=== PATIENT | female | born 1990 | race Caucasian/White ===

== ENCOUNTER 2017-01-16 16:32 | Emergency (ER) | payer OTHER ==
[2017-01-16 16:40] VITALS: BP 160/70
[2017-01-16] MEDS ORDERED: KETOROLAC 60 MG/2 ML VIAL. IM ONE (17:15)
[2017-01-16] MEDS ORDERED: KETOROLAC 30 MG/ML VIAL. ONE (17:42)
--- NOTE | 2017-01-16 20:07 | ED.ADGEN ---
Past History Past Medical History: No Pertinent History Alcohol Use: Occasionally Drug Use: Marijuana Adult General HPI HPI Patient is a 27-year-old woman, with no significant past no history, who presents emergency Department with a complaint of right-sided neck and shoulder pain. Patient states she is evaluated by her primary care provider last week, that time she was told that she is expressing a muscle spasm in her neck and shoulder, and was prescribed cyclobenzaprine. She states that she has not been able to fill the prescription at this time and is waiting for at the pharmacy. She states that she is experiencing worsening pain in her right arm, to the point where she can barely lift the arm at all due to discomfort. She denies any weakness, or numbness, states that the pain begins in her right neck and shoots all the way down into her arm extending to the elbow and sometimes to the fingers. She denies any discrete injury. 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 She states that she was told by her doctor after x-rays were done last week that she had evidence of arthritis in her back, and is currently being scheduled for an MRI. She did take ibuprofen prior to coming to the ED without relief. Review of Systems Review of Systems Constitutional: Denies fever or chills [] Eyes: Denies change in visual acuity, redness, or eye pain [] HENT: Denies nasal congestion or sore throat [] Respiratory: Denies cough or shortness of breath [] Cardiovascular: No additional information not addressed in HPI [] GI: Denies abdominal pain, nausea, vomiting, bloody stools or diarrhea [] : Denies dysuria or hematuria [] Musculoskeletal: Neck upper back pain, radiating into the right shoulder and arm. Integument: Denies rash or skin lesions [] Neurologic: Denies headache, focal weakness or sensory changes [] Endocrine: Denies polyuria or polydipsia [] Current Medications Current Medications Current Medications Medications (Trade) Dose Ordered Sig/Jeremy Start Time Stop Time Status Last Admin Dose Admin Diazepam (Valium) 10 mg STK-MED ONCE 01/16/17 17:42 01/16/17 17:43 DC Ketorolac Tromethamine (Toradol) 30 mg STK-MED ONCE 01/16/17 17:42 01/16/17 17:43 DC Allergies Allergies Allergies Coded Allergies Type Severity Reaction Last Updated Verified No Known Drug Allergies 01/16/17 No Physical Exam Physical Exam Constitutional: Well developed, well nourished, no acute distress, non-toxic appearance. [] HENT: Normocephalic, atraumatic, bilateral external ears normal, oropharynx moist, no oral exudates, nose normal. [] Eyes: PERRLA, EOMI, conjunctiva normal, no discharge. [] Neck: Normal range of motion, no midline tenderness, step-offs or deformities, supple, no stridor. [] Patient with a positive Spurling sign. Cardiovascular:Heart rate regular rhythm, no murmur, S1, S2, rubs or gallops. [] Lungs & Thorax: Bilateral breath sounds clear to auscultation, no wheezing, rhonchi, rales. No chest or crepitus or tenderness. [] Abdomen: Bowel sounds normal, soft, no tenderness, no masses, no pulsatile masses. [] Skin: Warm, dry, no erythema, no rash. [] Back: No tenderness, no CVA tenderness. [] Extremities: Mild tenderness palpation in the trapezius on the right side,, no cyanosis, no clubbing, ROM intact, no edema. [] Patient with cardinal motions intact, full strength. Neurologic: Alert and oriented X 3, normal motor function, normal sensory function, no focal deficits noted. [] Psychologic: Affect normal, judgement normal, mood normal. [] Current Patient Data Vital Signs Vital Signs Date Time Temp Pulse Resp B/P (MAP) Pulse Ox O2 Delivery O2 Flow Rate FiO2 01/16/17 16:40 98.3 118 16 97 Room Air EKG EKG Not indicated. [] Radiology/Procedures Radiology/Procedures Not indicated. [] Course & Med Decision Making Course & Med Decision Making Pertinent Labs and Imaging studies reviewed. (See chart for details) Patient's examination is consistent with cervical radiculopathy. I did discuss this with the patient, as stated she is being scheduled for an MRI, and was told after x-ray performed last week that she has evidence of arthritis in her back. Discussed the causes of cervical radiculopathy the patient, and potential treatment. Patient received an injection of Toradol and Valium in the emergency department to assist with relaxation and pain control, she states she will follow-up with her doctor this week for the scheduling of her MRI, was also given contact information for Dr. Avila of neurosurgery to establish additional follow-up as needed. Patient states that the Flexeril is waiting for her at the pharmacy and that her spousal be able to pick it up on their way home. Patient given clear and detailed return instructions with which she voiced understanding and agreement. Discharged home in stable condition, to continue the medications as directed by her primary care provider, to follow-up as directed and to return to the ED for concerning symptoms as discussed. Final Impression Final Impression [] Problems: Dragon Disclaimer Dragon Disclaimer This electronic medical record was generated, in whole or in part, using a voice recognition dictation system. Departure: Impression: Primary Impression: Cervical radiculopathy Disposition: 01 HOME, SELF-CARE Condition: IMPROVED DANELLE NDIAYE DO Jan 16, 2017 20:07
== END 2017-01-16 18:00 | disposition home or self-care (01) ==
LOC: ER 16:32
DX: M54.12 Radiculopathy, cervical region (principal); M25.511 Pain in right shoulder; F12.10 Cannabis abuse, uncomplicated
CPT/HCPCS: 96372; 99284; J1885

== ENCOUNTER 2017-01-22 04:19 | Emergency (ER) | payer OTHER ==
--- NOTE | 2017-01-22 04:41 | PHYS DOC ---
Past History Past Medical History: No Pertinent History Alcohol Use: Occasionally Drug Use: Marijuana Adult General Chief Complaint Chief Complaint: CHEST PAIN HPI HPI Patient is a 27 year old F who presents with left sided chest pain that started approximately an hour ago while at work. Patient has no cardiac history. The only cardiac risk factor is smoking cigarettes and marijuana. Patient states she gets pain relief when she presses against her left chest. The pain is nonradiating. The pain is not exertional. Patient denies any shortness of breath. Patient denies any fevers. Patient denies abdominal pain or nausea/ vomiting/diarrhea. Patient has no other complaints. Pertinent exam findings: Heart was regular rate and rhythm without any murmurs Lungs are clear to auscultation bilaterally without crackles wheezes or rales ED course: Patient was seen and examined upon arrival to emergency room CBC, BMP, troponin , chest x-ray, EKG were ordered 0537: Was reexamined in which the chest pain got better, patient was updated on lab results and x-ray results. Explained to the patient that she is low risk from a cardiac standpoint and can be safely discharged home with follow-up with her PCP for further cardiac evaluation. Patient is comfortable going home. Pertinent results: HEART score: =1 PERC neg 0546: EKG shows normal sinus rhythm rate of 64 no STEMI Chest x-ray unremarkable Troponin negative MDM: After reviewing the chart, CC/HPI/PMH, physical exam, [lab results], [ radiological results], I do not believe the patient have an acute PR, PE, and his low suspicion for acute thoracic aortic dissection. Based on the patient's cardiac risk factors and lab results I believe the patient is low risk and can be discharged home for follow-up with her PCP for further cardiac evaluation. Patient is stable for discharge and patient is comfortable being discharged home. Additional verbal discharge instructions were provided to the patient and that if symptoms get worse or any new symptoms arise that are worrisome to the patient she is to return to the emergency room immediately Review of Systems Review of Systems GEN: Denies fevers, chills, sweats HEENT: Denies blurred vision, sore throat CV: chest pain RESP: Denies shortness of air, cough GI: Denies n/v/d NEURO: Denies confusion, dizziness MSK: Denies weakness, joint pain/swelling Allergies Allergies Allergies Coded Allergies Type Severity Reaction Last Updated Verified No Known Drug Allergies 01/16/17 No Physical Exam Physical Exam GEN.: No apparent distress. Alert and oriented. HEENT: Head is normocephalic, atraumatic NECK: Supple. LUNGS: CTAB. HEART: RRR, S1, S2 present. Peripheral pulses intact ABDOMEN: Soft, nontender. Positive bowel sounds. EXTREMITIES: Without any cyanosis. NEUROLOGIC: Normal speech, normal tone PSYCHIATRIC: Normal affect, normal mood. SKIN: No ulcerations EKG EKG EKG shows normal sinus rhythm rate of 64 no STEMI [] Radiology/Procedures Radiology/Procedures Two-view chest x-ray NAD[] Course & Med Decision Making Course & Med Decision Making Pertinent Labs and Imaging studies reviewed. (See chart for details) [] Dragon Disclaimer Dragon Disclaimer This chart was dictated in whole or in part using Voice Recognition software in a busy, high-work load, and often noisy Emergency Department environment. It may contain unintended and wholly unrecognized errors or omissions. Departure Departure: Impression: Primary Impression: Chest pain Disposition: 01 HOME, SELF-CARE Condition: STABLE Referrals: PANCHO MAJANO DO (PCP) Patient Instructions: Chest Contusion, [id number] Additional Instructions: Please follow up with her family doctor next one to 2 days and return symptoms increase Problem Qualifiers Primary Impression: Chest pain Chest pain type: unspecified Qualified Codes: R07.9 - Chest pain, unspecified VLADIMIR RIZZO DO Jan 22, 2017 04:41
[2017-01-22] MEDS ORDERED: KETOROLAC 30 MG/ML VIAL. IV ONE (05:00)
[2017-01-22 05:04] LABS: BASO # 0.1 x10^3/uL (0.0-0.2); BASO % 1 % (0-3); EOS # 0.3 x10^3/uL (0.0-0.7); EOS % 3 % (0-3); HEMATOCRIT 41.7 % (36.0-47.0); HEMOGLOBIN 13.5 g/dL (12.0-15.5); LYMPH # 3.2 x10^3/uL (1.0-4.8); LYMPH % 29 % (24-48); MEAN CORPUSCULAR HEMOGLOBIN 29 pg (25-35); MEAN CORPUSCULAR HGB CONC 32 g/dL (31-37); MEAN CORPUSCULAR VOLUME 89 fL (79-100); MONO # 0.5 x10^3/uL (0.0-1.1); MONO % 5 % (0-9); NEUT % 63 % (31-73); PLATELET COUNT 245 x10^3/uL (140-400); RED CELL DISTRIBUTION WIDTH 13.9 % (11.5-14.5); WHITE BLOOD COUNT 11.1 x10^3/uL (4.0-11.0)
[2017-01-22 05:06] LABS: CALCIUM 8.5 mg/dL (8.5-10.1); CREATININE 0.9 mg/dL (0.6-1.0); GFR 74.6; POTASSIUM 3.7 mmol/L (3.5-5.1)
[2017-01-22 05:28] VITALS: BP 115/60
--- NOTE | 2017-01-22 07:51 | RAD ---
Indication chest pain and shortness of air. Frontal and lateral views of the chest were obtained. No prior imaging is available. The heart, pulmonary vessels and mediastinum appear normal. The lungs are clear. IMPRESSION: Normal study
--- NOTE | 2017-01-22 19:05 | EKG ---
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
== END 2017-01-22 05:55 | disposition home or self-care (01) ==
LOC: ER 04:19
DX: R07.89 Other chest pain (principal); F12.10 Cannabis abuse, uncomplicated
CPT/HCPCS: 36415; 71020; 80048; 84484; 85027; 93005; 96374; 99285; J1885

== ENCOUNTER 2017-06-25 20:13 | Emergency (ER) | payer SELFPAY ==
[~2017-06-25] VITALS: Ht 154.9 cm; Wt 88.5 kg
[2017-06-25 20:38] VITALS: BP 147/99
[2017-06-25] MEDS ORDERED: 0.9 % SODIUM CHLORIDE 10 ML DISP.SYRIN. IV PRN (20:45)
--- NOTE | 2017-06-25 20:49 | PHYS DOC ---
Past History Past Medical History: Migraines Past Surgical History: No Surgical History Smoking: Cigarettes, Greater than 1 pack/day Alcohol Use: Occasionally Drug Use: Marijuana Adult General Chief Complaint Chief Complaint: HEADACHE HPI HPI She is a 27-year-old female with a history of migraines who presents with her typical migraine between her temples bilaterally behind her eyes with photophobia and nausea without vomiting began at 11 AM today. She typically takes migraine headaches called Excedrin Migraine with resolution of her symptoms. But this day her symptoms have not improved. She denies any new symptoms, change in symptoms or severity of symptoms. Patient has never been to her ear before for prior symptoms treatment. Patient denies any fevers, change in vision, chest pain, abdominal pain just nausea without vomiting. Patient denies any trauma, denies any travel outside the country. 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 Review of Systems Review of Systems Constitutional: Denies fever or chills [] Eyes: Denies change in visual acuity, redness, or eye pain [] HENT: Denies nasal congestion or sore throat [] Respiratory: Denies cough or shortness of breath [] Cardiovascular: No additional information not addressed in HPI [] GI: Denies abdominal pain, she does complain of nausea without vomiting : Denies dysuria or hematuria [] Musculoskeletal: Denies back pain or joint pain [] Integument: Denies rash or skin lesions [] Neurologic: She does complain of headache but no focal weakness or sensory changes Endocrine: Denies polyuria or polydipsia [] All other systems were reviewed and found to be within normal limits, except as documented in this note. Current Medications Current Medications Current Medications Medications (Trade) Dose Ordered Sig/Jeremy Start Time Stop Time Status Last Admin Dose Admin Dexamethasone Sodium Phosphate (Decadron) 10 mg 1X ONCE 06/25/17 21:00 06/25/17 21:01 Diphenhydramine HCl (Benadryl) 50 mg 1X ONCE 06/25/17 21:00 06/25/17 21:01 Ketorolac Tromethamine (Toradol) 30 mg 1X ONCE 06/25/17 21:00 06/25/17 21:01 Ondansetron HCl (Zofran) 4 mg 1X ONCE 06/25/17 21:00 06/25/17 21:01 Sodium Chloride (Normal Saline Flush) 10 ml QSHIFT PRN 06/25/17 20:45 Allergies Allergies Allergies Coded Allergies Type Severity Reaction Last Updated Verified No Known Drug Allergies 01/16/17 No Physical Exam Physical Exam Constitutional: Well developed, well nourished, he obviously uncomfortable crying but consolable able speak without issues. HENT: Normocephalic, atraumatic, bilateral external ears normal, oropharynx moist, no oral exudates, nose normal. [] Eyes: PERRLA, EOMI, conjunctiva normal, no discharge. [] Neck: Normal range of motion, no tenderness, supple, no stridor. [] Cardiovascular:Heart rate regular rhythm, no murmur [] Lungs & Thorax: Bilateral breath sounds clear to auscultation [] Abdomen: Bowel sounds normal, soft, no tenderness, no masses, no pulsatile masses. [] Skin: Warm, dry, no erythema, no rash. [ Neurologic: Alert and oriented X 3, normal motor function, normal sensory function, no focal deficits noted. [] Psychologic: Affect normal, judgement normal, mood normal. [] EKG EKG [] Radiology/Procedures Radiology/Procedures [] Course & Med Decision Making Course & Med Decision Making Pertinent Labs and Imaging studies reviewed. (See chart for details) []Patient percents with a migraine headache Sudden onset not worse of life. Nonfocal neurologic exam. Patient given IV fluids antiemetics and pain medications none narcotic nature with reevaluation. MDM headache reevaluation: time 9:29 The patient presented to the emergency part with headache. The patient is now resting comfortably and feels better, is awake, talkative, interactive, and in no acute distress. The patient appears well and is able to tolerate by mouth fluids and medications. Repeat evaluation is unremarkable without any specific neurologic findings. The patient is neurologically intact, has normal mental status. The history, exam, and any diagnostic testing completed in the ED (if any) and the patient's current condition do not suggest meningitis, stroke, sepsis, subarachnoid hemorrhage, intracranial bleed, encephalitis, temporal arteritis, or other significant pathology warranting further testing and continue treatment in the ED. At this point I do not believe admission or neurologic consultation or other specialist evaluation are needed at this point. The patient's vital signs have been stabilized. Patient's condition is stable and appropriate for discharge. The patient will pursue further up and evaluation with primary care and other designated resources or consulting physicians as indicated in the discharge instructions. Dragon Disclaimer Dragon Disclaimer This electronic medical record was generated, in whole or in part, using a voice recognition dictation system. Departure Departure: Impression: Primary Impression: Migraine Disposition: 01 HOME, SELF-CARE Condition: IMPROVED Referrals: PANCHO MAJANO DO (PCP) Patient Instructions: Migraine Headache Additional Instructions: discharge: I've spoken with the patient and/or caregivers. I've explained the patient's condition, diagnosis and treatment plan based on information available to me at this time. I've answered the patient's and/or caregivers questions and addressed any concerns. The patient and/or caregivers have a good understanding the patient's diagnosis, condition and treatment plan as can be expected at this point. Vital signs have been stabilized. The patient's condition is stable for discharge from the emergency department. The patient will pursue further outpatient evaluation with her primary care provider or other designated consulting physician as outlined in the discharge instructions. Patient and/or caregivers are agreeable to this plan of care and follow-up instructions have been explained in detail. The patient and/or caregivers have received these instructions in written format and expressed understanding of these discharge instructions. The patient and her caregivers are aware that if any significant change in condition or worsening of symptoms should prompt him to immediately return to this of the closest emergency department. If an emergent department is not readily available I would encourage him to call 911. Scripts Acetaminophen (TYLENOL) 325 Mg Tablet 1-2 TAB PO QID, #30 TAB 0 Refills Prov: SHILO PRUITT MD 06/25/17 Naproxen Sodium (NAPROXEN SODIUM) 275 Mg Tablet 275 MG PO BID for 7 Days, #14 TAB Prov: SHILO PRUITT MD 06/25/17 Prochlorperazine Maleate (Compazine) 10 Mg Tablet 10 MG PO TID PRN Y for NAUSEA for 5 Days, TAB Prov: SHILO PRUITT MD 06/25/17 SHILO PRUITT MD Jun 25, 2017 20:49
[2017-06-25] MEDS ORDERED: KETOROLAC 30 MG/ML VIAL. IV ONE (21:00)
[2017-06-25] MEDS ORDERED: ONDANSETRON PF 4 MG/2 ML VIAL. IV ONE (21:00)
[2017-06-25] MEDS ORDERED: DEXAMETHASONE SOD PHOS 10 MG/ML VIAL IV ONE (21:00)
[2017-06-25] MEDS ORDERED: diphenhydrAMINE 50 MG/ML VIAL IVP ONE (21:00)
[2017-06-25] MEDS ORDERED: IV NORMAL SALINE 1,000ML 1,000 ML IV SCH (21:00)
[2017-06-25] MEDS ORDERED: ACET325T9 PO (21:31)
[2017-06-25] MEDS ORDERED: NAPR275T59 PO (21:31)
[2017-06-25] MEDS ORDERED: PROC10TA57 PO (21:31)
[2017-06-25] MEDS ORDERED: PENI500T PO (21:40)
[2017-06-25] MEDS ORDERED: HYDR-2758 PO (21:40)
== END 2017-06-25 21:45 | disposition home or self-care (01) ==
LOC: ER 20:13
DX: G43.909 Migraine, unspecified, not intractable, without status migrainosus (principal); K02.9 Dental caries, unspecified; F17.210 Nicotine dependence, cigarettes, uncomplicated; F12.10 Cannabis abuse, uncomplicated
CPT/HCPCS: 96361; 96374; 96375; 99284; J1100; J1200; J1885; J2405; J7030

== ENCOUNTER 2017-10-10 17:22 | Emergency (ER) | payer BC ==
[~2017-10-10] VITALS: Ht 154.9 cm; Wt 90.7 kg
[~2017-10-10 17:22] MED LIST: ACET325T9 PO; HYDR-2758 PO; NAPR275T59 PO; PENI500T PO; PROC10TA57 PO
[2017-10-10] MEDS ORDERED: NAPR-683 PO (17:41)
[2017-10-10] MEDS ORDERED: HYDR-971 PO (17:41)
[2017-10-10] MEDS ORDERED: PENI500T PO (17:41)
--- NOTE | 2017-10-10 17:42 | PHYS DOC ---
Past History Past Medical History: Migraines Past Surgical History: No Surgical History Smoking: Cigarettes, Greater than 1 pack/day Alcohol Use: Occasionally Drug Use: Marijuana Adult General Chief Complaint Chief Complaint: DENTAL PROBLEM [facility] HPI 27-year-old female patient complaining of left lower jaw and tooth pain intermittently for several months that getting worse for the last 3 or 4 days. Patient states she applied local numbness with improvement of her pain but since yesterday her pain getting worse with developing facial swelling. Patient denies fever and chills, problems swallowing, nausea and vomiting. Patient rated her pain 9/10. Patient states she had the same problem previously and tries to get to a dentist. Review of Systems Review of Systems Constitutional: Denies fever or chills [] Eyes: Denies change in visual acuity, redness, or eye pain [] HENT: Denies nasal congestion or sore throat, reports dental pain[] Respiratory: Denies cough or shortness of breath [] Cardiovascular: No additional information not addressed in HPI [] GI: Denies abdominal pain, nausea, vomiting, bloody stools or diarrhea [] : Denies dysuria or hematuria [] Musculoskeletal: Denies back pain or joint pain [] Integument: Denies rash or skin lesions [] Neurologic: Denies headache, focal weakness or sensory changes [] Endocrine: Denies polyuria or polydipsia [] All other systems were reviewed and found to be within normal limits, except as documented in this note. Allergies Allergies Allergies Coded Allergies Type Severity Reaction Last Updated Verified No Known Drug Allergies 01/16/17 No Physical Exam Physical Exam Constitutional: Well developed, well nourished, no acute distress, non-toxic appearance. [] HENT: Normocephalic, atraumatic, bilateral external ears normal, oropharynx moist, no oral exudates, nose normal, left facial moderate edema without abscess , left lower molar #1 edema and tenderness and abscess. [] Eyes: PERRLA, EOMI, conjunctiva normal, no discharge. [] Neck: Normal range of motion, no tenderness, supple, no stridor. [] Cardiovascular:Heart rate regular rhythm, no murmur [] Lungs & Thorax: Bilateral breath sounds clear to auscultation [] Neurologic: Alert and oriented X 3, normal motor function, normal sensory function, no focal deficits noted. [] Psychologic: Affect normal, judgement normal, mood normal. [] EKG EKG [] Radiology/Procedures Radiology/Procedures [] Course & Med Decision Making Course & Med Decision Making Evaluation of patient in ER showed 22-year-old female patient with dental abscess and facial cellulitis. Patient had Toradol and Rocephin in ER and instructed to follow with a dentist and quit smoking. Dragon Disclaimer Dragon Disclaimer This electronic medical record was generated, in whole or in part, using a voice recognition dictation system. Departure Departure: Impression: Primary Impression: Dental abscess Additional Impressions: Facial cellulitis Tobacco abuse Tobacco abuse counseling Disposition: HOME, SELF-CARE (At 1800) Condition: IMPROVED Referrals: PANCHO MAJANO DO (PCP) Patient Instructions: Cellulitis, Dental Abscess, Smoking Cessation, Tips For Success Additional Instructions: Follow-up with a dentist in 2 or 3 days Quit smoking Follow-up with your primary care physician in 3-5 days Return to ER if not getting better Scripts Naproxen (NAPROSYN) 500 Mg Tablet 1 TAB PO BID, #20 TAB 2 Refills Prov: CHIKA ALMAGUER MD 10/10/17 Hydrocodone Bit/Acetaminophen (NORCO 5-325 TABLET) 1 Each Tablet 1 TAB PO PRN Q6HRS Y for PAIN, #10 TAB 0 Refills Prov: CHIKA ALMAGUER MD 10/10/17 Penicillin V Potassium (PENICILLIN V POTASSIUM) 500 Mg Tablet 1 TAB PO QID, #40 TAB Prov: CHIKA ALMAGUER MD 10/10/17 Problem Qualifiers CHIKA ALMAGUER MD Oct 10, 2017 17:41
[2017-10-10] MEDS ORDERED: KETOROLAC 60 MG/2 ML VIAL. IM ONE (17:45)
[2017-10-10] MEDS ORDERED: cefTRIAXone IM 1 GM VIAL IM ONE (17:45)
[2017-10-10 18:06] VITALS: BP 130/81
== END 2017-10-10 18:07 | disposition home or self-care (01) ==
LOC: ER 17:22
DX: K04.7 Periapical abscess without sinus (principal); L03.211 Cellulitis of face; F17.210 Nicotine dependence, cigarettes, uncomplicated; F12.10 Cannabis abuse, uncomplicated; G43.909 Migraine, unspecified, not intractable, without status migrainosus
CPT/HCPCS: 96372; 99284; J0696; J1885

== ENCOUNTER 2019-01-30 12:14 | Emergency (ER) | payer BC, OTHER ==
[~2019-01-30 12:14] MED LIST changes: +HYDR-2155 PO; -HYDR-2758 PO; +HYDR-3165 PO; +NAPR-683 PO
[2019-01-30 12:29] VITALS: BP 151/103
[2019-01-30] MEDS ORDERED: LIDOCAINE 1% Multi-Dose 20 ML VIAL. ONE (12:37)
[2019-01-30] MEDS ORDERED: HYDR-3165 PO (12:55)
[2019-01-30] MEDS ORDERED: SULF1TAB24 PO (12:55)
--- NOTE | 2019-01-30 12:55 | PHYS DOC ---
Past History Past Medical History: No Pertinent History Past Surgical History: No Surgical History Smoking: Cigarettes, Greater than 1 pack/day Alcohol Use: None Drug Use: None Adult General Chief Complaint Chief Complaint: BACK PAIN OR INJURY HPI HPI Patient is a 29-year-old female presents with an abscess at the top of her gluteal cleft. She states is been ongoing for a couple days. It's been so bad now that she's been unable to sit. She denies any fever chills or sweats. She has not had one of these in the past.[] Review of Systems Review of Systems Constitutional: Denies fever or chills [] Musculoskeletal: Pain in low back secondary to the abscess[] Integument: Abscess as described in the history of present illness[] All other systems were reviewed and found to be within normal limits, except as documented in this note. Current Medications Current Medications Current Medications Medications (Trade) Dose Ordered Sig/Jeremy Start Time Stop Time Status Last Admin Dose Admin Lidocaine HCl 20 ml 1X ONCE 01/30/19 13:00 01/30/19 13:01 Lidocaine HCl (Xylocaine-Mpf 1% Vial) 5 ml 1X ONCE 01/30/19 13:00 01/30/19 13:00 DC Oxycodone/ Acetaminophen (Percocet 10/325) 1 tab 1X ONCE 01/30/19 13:00 01/30/19 13:01 Trimethoprim/ Sulfamethoxazole (Bactrim Ds) 1 tab 1X ONCE 01/30/19 13:00 01/30/19 13:01 Allergies Allergies Allergies Coded Allergies Type Severity Reaction Last Updated Verified No Known Drug Allergies 01/16/17 No Physical Exam Physical Exam Constitutional: Well developed, well nourished, no acute distress, non-toxic appearance. [] HENT: Normocephalic, atraumatic, bilateral external ears normal, oropharynx moist, no oral exudates, nose normal. [] Eyes: PERRLA, EOMI, conjunctiva normal, no discharge. [] Neck: Normal range of motion, no tenderness, supple, no stridor. [] Cardiovascular:Heart rate regular rhythm, no murmur [] Lungs & Thorax: Bilateral breath sounds clear to auscultation [] Abdomen: Bowel sounds normal, soft, no tenderness, no masses, no pulsatile masses. [] Skin: Large pilonidal cyst at the superior aspect of the gluteal cleft[] Extremities: No tenderness, no cyanosis, no clubbing, ROM intact, no edema. [] Neurologic: Alert and oriented X 3, normal motor function, normal sensory function, no focal deficits noted. [] Psychologic: Affect normal, judgement normal, mood normal. [] Current Patient Data Vital Signs Vital Signs Date Time Temp Pulse Resp B/P (MAP) Pulse Ox O2 Delivery O2 Flow Rate FiO2 01/30/19 12:29 98.7 88 18 100 Room Air EKG EKG [] Radiology/Procedures Radiology/Procedures [] Course & Med Decision Making Course & Med Decision Making Pertinent Labs and Imaging studies reviewed. (See chart for details) [Procedure: Incision and drainage pilonidal cyst The area was anesthetized with 5 mL of 1% lidocaine and then using an 11 blade 2 small incisions were made draining a large amount of. Blunt material. Patient tolerated the procedure well] Dragon Disclaimer Dragon Disclaimer This electronic medical record was generated, in whole or in part, using a voice recognition dictation system. Departure Departure: Impression: Primary Impression: Pilonidal cyst with abscess Disposition: 01 HOME, SELF-CARE Condition: IMPROVED Referrals: PANCHO MAJANO DO (PCP) Patient Instructions: Pilonidal Cyst, Pilonidal Cyst, Care After Additional Instructions: Take warm showers multiple times daily. The wound should continue to drain over the next 24-36 hours. Take antibiotics as directed Scripts Hydrocodone Bit/Acetaminophen (NORCO 5-325 TABLET) 1 Each Tablet 1 TAB PO Q4-6HRS for PAIN, #15 TAB Prov: JAMI POLK DO 01/30/19 Sulfamethoxazole/Trimethoprim (BACTRIM DS TABLET) 1 Each Tablet 1 TAB PO BID for abscess, #20 TAB Prov: JAMI POLK DO 01/30/19 JAMI POLK DO Jan 30, 2019 12:55
[2019-01-30] MEDS ORDERED: oxyCODONE/APAP 10/325 1 TAB TABLET PO ONE (13:00)
[2019-01-30] MEDS ORDERED: LIDOCAINE 1% Multi-Dose 20 ML VIAL. INJ ONE (13:00)
[2019-01-30] MEDS ORDERED: LIDOCAINE 1% PF 5 ML VIAL. INJ ONE (13:00)
[2019-01-30] MEDS ORDERED: SMZ/TMP 800/160MG TABLET. PO ONE (13:00)
== END 2019-01-30 13:00 | disposition home or self-care (01) ==
LOC: ER 12:14
DX: L05.01 Pilonidal cyst with abscess (principal); F17.210 Nicotine dependence, cigarettes, uncomplicated
CPT/HCPCS: 10080; 99284

== ENCOUNTER 2020-03-18 06:37 | Emergency (ER) | payer OTHER ==
[~2020-03-18] VITALS: Ht 154.9 cm; Wt 122.7 kg
[~2020-03-18 06:37] MED LIST changes: +SULF1TAB24 PO
[2020-03-18 07:01] VITALS: BP 145/84
[2020-03-18] MEDS ORDERED: HYDROcodone/APAP 5/325MG 1 TAB TABLET PO ONE (07:15)
--- NOTE | 2020-03-18 07:27 | PHYS DOC ---
Past History Past Medical History: No Pertinent History Past Surgical History: No Surgical History Smoking: Cigarettes, Greater than 1 pack/day Alcohol Use: None Drug Use: None Adult General Chief Complaint Chief Complaint: MECHANICAL FALL HPI HPI Patient is an obese but otherwise healthy 30-year-old female who presents for fall Onset was yesterday evening, was mechanical in nature when patient was in garage and tripped over household items on the floor. Patient reports falling on outstretched left hand and then hitting tailbone Tried to take naproxen for pain with minimal relief, slept poorly overnight. Reports bending and all physical activity and weightbearing make worse Pain is 10/10 severity, nonradiating, and focal to tailbone. She also reports mild left palmar surface of the left hand tenderness Denies any focal/motor/sensory/neurological deficits since onset of injury, no saddle anesthesia, no bladder or bowel incontinence Review of Systems Review of Systems Fourteen body systems of review of systems have been reviewed. See HPI for pertinent positives and negative responses, other de anda all other systems are negative, non-pertinent or non-contributory Current Medications Current Medications Current Medications Medications (Trade) Dose Ordered Sig/Jeremy Start Time Stop Time Status Last Admin Dose Admin Acetaminophen/ Hydrocodone Bitart (Lortab 5/325) 1 tab 1X ONCE 03/18/20 07:15 03/18/20 07:16 UNV Allergies Allergies Allergies Coded Allergies Type Severity Reaction Last Updated Verified No Known Drug Allergies 01/16/17 No Physical Exam Physical Exam Constitutional: Pt is oriented to person, place, and time. Pt appears well- developed and well-nourished. Appears uncomfortable in chair and in pain HENT: Head: Normocephalic and atraumatic. Mouth/Throat: Oropharynx is clear and moist. No hematomas or lacerations or abrasions to face or scalp OP clear, no blood, no malocclusion, dentition intact Nares clear, no nasal septal hematoma External ear normal Midface stable Eyes: Conjunctivae and EOM are normal. Pupils are equal, round, and reactive to light. Neck: C-spine midline nontender, no step-offs Cardiovascular: Normal rate, regular rhythm and normal heart sounds. Pulmonary/Chest: Effort normal and breath sounds normal. No respiratory d istress. He has no wheezes. CTA bilaterally Abdominal: Soft. Bowel sounds are normal. Pt exhibits no distension. There is no tenderness. Musculoskeletal: No bony tenderness to extremities, no deformities, full ROM extremities Chest wall stable Pelvis stable and non-tender No vertebral TTP and spine without stepoffs Neurological: Pt is alert and oriented to person, place, and time. Moving all extremities willfully, able to wiggle all fingers and toes Alert and oriented x 3 Sensation grossly intact Skin: Skin is warm and dry. No abrasions, no lacerations Psychiatric: Behavior is appropriate for situation Nursing note and vitals reviewed. Current Patient Data Vital Signs Vital Signs Date Time Temp Pulse Resp B/P (MAP) Pulse Ox O2 Delivery O2 Flow Rate FiO2 03/18/20 07:01 98.0 75 18 145/84 (104) 97 EKG EKG [] Radiology/Procedures Radiology/Procedures PROCEDURE: HAND LEFT 3V Study: CR HAND LEFT 3V Indication: Fall. Comparison: None. Findings: No acute fracture seen throughout the hand or wrist. A punctate radiodensity projects over the volar soft tissues at the level of the long finger PIP joint. Joint spaces are maintained. Normal mineralization. Impression: 1. No acute fracture seen throughout the hand or wrist. 2. Punctate radiodensity projecting within the soft tissues volar to the long finger PIP joint. This could be chronic but correlate for any regional soft tissue injury to suggest a retained foreign body. Electronically signed by: FAITH LANIER MD (03/18/2020 8:02 AM) [id number] PROCEDURE: SACRUM & COCCYX 3V Study: 1. CR LUMBAR SPINE 2-3V 2. CR SACRUM COCCYX 3V Indication: Fall. Comparison: None. Findings: Lumbar spine: No acute fracture or traumatic malalignment. Mild early discogenic arthrosis at L4-L5 and L5-S1. A few foci of mineralization projecting over the upper abdomen to include overlying the left kidney. Sacrum/coccyx: No fracture is seen to involve the sacrum or coccyx. Alignment of the coccyx and sacrococcygeal junction is within normal limits. No acute abnormality of the partially assessed hips. Impression: Lumbar spine: 1. No acute fracture or traumatic malalignment. 2. Mild early discogenic arthrosis at L4-L5 and L5-S1. 3. A few foci of mineralization project over the upper abdomen, one of which is over the left kidney. An intrarenal stone is not excluded. Sacrum/coccyx: 1. No acute fracture by radiography. Electronically signed by: FAITH LANIER MD (03/18/2020 8:06 AM) [id number] Course & Med Decision Making Course & Med Decision Making Patient seen and evaluated by myself on arrival, nontoxic appearing, self ambulating without gross deficits Vital signs stable Comprehensive history and physical exam in addition to imaging obtained [place] 51 administered with moderate relief in symptomology ED course reviewed, discussed no further diagnostic or surgical work-up indicated at this time Discussed role of continued supportive care such as stretching and as needed analgesics with close PCP follow-up and consideration for PT as needed Strict return precautions discussed with good understanding by patient, all questions and concerns addressed prior to ED departure Teo Disclaimer Dragon Disclaimer This electronic medical record was generated, in whole or in part, using a voice recognition dictation system. Departure Departure: Impression: Primary Impression: Fall Additional Impression: Contusion of sacral region Disposition: HOME/RESIDENCE PRIOR TO ADM Condition: STABLE Referrals: PRAMOD MÁRQUEZ (PCP) Patient Instructions: Fall Prevention and Home Safety, RICE - Routine Care for Injuries Additional Instructions: As discussed prior to ER departure, please call your PCP as soon as possible to schedule outpatient follow-up visit Please continue supportive care practices such as ice, NSAIDs/Tylenol for pain control, and stretches of back and upper extremities Please discuss potential need for outpatient physical therapy with your PCP Justification of Admission: Justification of Admission: Justification of Admission Dx: N/A Problem Qualifiers HERMINIO HALLMAN DO Mar 18, 2020 07:27
--- NOTE | 2020-03-18 08:05 | RAD ---
Study: CR HAND LEFT 3V Indication: Fall. Comparison: None. Findings: No acute fracture seen throughout the hand or wrist. A punctate radiodensity projects over the volar soft tissues at the level of the long finger PIP joint. Joint spaces are maintained. Normal mineralization. Impression: 1. No acute fracture seen throughout the hand or wrist. 2. Punctate radiodensity projecting within the soft tissues volar to the long finger PIP joint. This could be chronic but correlate for any regional soft tissue injury to suggest a retained foreign body. Electronically signed by: FAITH LANIER MD (03/18/2020 8:02 AM) [id number]
--- NOTE | 2020-03-18 08:09 | RAD ---
Study: 1. CR LUMBAR SPINE 2-3V 2. CR SACRUM COCCYX 3V Indication: Fall. Comparison: None. Findings: Lumbar spine: No acute fracture or traumatic malalignment. Mild early discogenic arthrosis at L4-L5 and L5-S1. A few foci of mineralization projecting over the upper abdomen to include overlying the left kidney. Sacrum/coccyx: No fracture is seen to involve the sacrum or coccyx. Alignment of the coccyx and sacrococcygeal junction is within normal limits. No acute abnormality of the partially assessed hips. Impression: Lumbar spine: 1. No acute fracture or traumatic malalignment. 2. Mild early discogenic arthrosis at L4-L5 and L5-S1. 3. A few foci of mineralization project over the upper abdomen, one of which is over the left kidney. An intrarenal stone is not excluded. Sacrum/coccyx: 1. No acute fracture by radiography. Electronically signed by: FAITH LANIER MD (03/18/2020 8:06 AM) [id number]
== END 2020-03-18 08:35 | disposition home or self-care (01) ==
LOC: ER 06:37
DX: S30.0XXA Contusion of lower back and pelvis, initial encounter (principal); M79.642 Pain in left hand; F17.210 Nicotine dependence, cigarettes, uncomplicated; W18.09XA Striking against other object with subsequent fall, initial encounter; Y93.89 Activity, other specified; Y92.89 Other specified places as the place of occurrence of the external cause; Y99.8 Other external cause status
CPT/HCPCS: 72100; 72220; 73130; 99284

== ENCOUNTER → 2021-02-26 | Outpatient (CLI) | payer OTHER ==
--- NOTE | 2021-02-26 19:29 | RAD ---
Chest radiograph 02/26/2021 7:09 PM INDICATION: Cough, shortness of breath COMPARISON: None available TECHNIQUE: Frontal and lateral views of the chest are provided. FINDINGS: The cardiomediastinal silhouette is within normal limits. There are no pleural effusions. There is no pulmonary vascular congestion. There is no pneumothorax. The lungs are clear. No significant osseous abnormality is identified. IMPRESSION: No acute cardiopulmonary process. Electronically signed by: Adamaris Barnes MD (02/26/2021 7:27 PM) [facility]
== END ==
LOC: RAD 18:59
PROVIDERS: ATTEND Nurse Practitioner Family
DX: J22 Unspecified acute lower respiratory infection (principal)
CPT/HCPCS: 71046

== ENCOUNTER 2021-04-13 14:30 | Emergency (ER) | payer OTHER ==
[~2021-04-13] VITALS: Ht 154.9 cm; Wt 90.0 kg
[2021-04-13 14:44] VITALS: BP 146/99
--- NOTE | 2021-04-13 15:16 | RAD ---
Right tibia and fibula 2 views HISTORY: Injury, bruising and swelling mid tibia fibula AP and lateral views were taken of the right tibia and fibula. There is not evidence of an acute frac ture or osseous abnormality. IMPRESSION: 1. Negative right tibia and fibula. Electronically signed by: Lakhwinder Killian MD (04/13/2021 3:13 PM) [facility]
--- NOTE | 2021-04-13 15:30 | PHYS DOC ---
Past History Past Medical History: No Pertinent History (GEO POTTER APRN) Past Surgical History: No Surgical History (GEO POTTER APRN) Smoking: Cigarettes, Greater than 1 pack/day Alcohol Use: None Drug Use: None (GEO POTTER APRN) General Adult EDM: Chief Complaint: LOWER EXT PAIN HPI: HPI: Patient is a 31-year-old female presents with right sided rapp pain. Patient states that last Tuesday she fell when she slipped on water in the bathroom. Patient still has full range of motion and able to ambulate on her own. Patient denies taking anything for pain. Patient denies anything making pain worse or better. Denies medical history. (GEO POTTER APRN) Review of Systems: Review of Systems: Constitutional: Denies fever or chills Eyes: Denies change in visual acuity HENT: Denies nasal congestion or sore throat Respiratory: Denies cough or shortness of breath Cardiovascular: Denies chest pain or edema GI: Denies abdominal pain, nausea, vomiting, bloody stools or diarrhea : Denies dysuria Musculoskeletal: Reports right-sided rapp pain. Integument: Denies rash Neurologic: Denies headache, focal weakness or sensory changes Endocrine: Denies polyuria or polydipsia Lymphatic: Denies swollen glands Psychiatric: Denies depression or anxiety (GEO POTTER APRN) Allergies: Allergies: Allergies Coded Allergies Type Severity Reaction Last Updated Verified No Known Drug Allergies 01/16/17 No (GEO POTTER APRN) Physical Exam: PE: Constitutional: Well developed, well nourished, no acute distress, non-toxic appearance. [] HENT: Normocephalic, atraumatic, bilateral external ears normal, oropharynx moist, no oral exudates, nose normal. [] Eyes: PERRLA, EOMI, conjunctiva normal, no discharge. [] Neck: Normal range of motion, no tenderness, supple, no stridor. [] Cardiovascular:Heart rate regular rhythm, no murmur [] Lungs & Thorax: Bilateral breath sounds clear to auscultation [] Abdomen: Bowel sounds normal, soft, no tenderness, no masses, no pulsatile masses. [] Skin: Bruising to right ankle Back: No tenderness, no CVA tenderness. [] Extremities: Right rapp tenderness, no cyanosis, no clubbing, ROM intact, no edema. [] Neurologic: Alert and oriented X 3, normal motor function, normal sensory function, no focal deficits noted. [] Psychologic: Affect normal, judgement normal, mood normal. [] (GEO POTTER APRN) Current Patient Data: Vital Signs: Vital Signs Date Time Temp Pulse Resp B/P (MAP) Pulse Ox O2 Delivery O2 Flow Rate FiO2 04/13/21 14:44 97.9 61 16 146/99 98 Room Air (GEO POTTER APRN) EKG: EKG: [] (EGO POTTER APRN) Radiology/Procedures: Radiology/Procedures: []Right tibia and fibula 2 views HISTORY: Injury, bruising and swelling mid tibia fibula AP and lateral views were taken of the right tibia and fibula. There is not evidence of an acute fracture or osseous abnormality. IMPRESSION: 1. Negative right tibia and fibula. Electronically signed by: Lakhwinder Killian MD (04/13/2021 3:13 PM) [facility] (GEO POTTER APRN) Heart Score: C/O Chest Pain: No Risk Factors: Risk Factors: DM, Current or recent (<one month) smoker, HTN, HLP, family history of CAD, obesity. Risk Scores: Score 0 - 3: 2.5% MACE over next 6 weeks - Discharge Home Score 4 - 6: 20.3% MACE over next 6 weeks - Admit for Clinical Observation Score 7 - 10: 72.7% MACE over next 6 weeks - Early Invasive Strategies (GEO POTTER APRN) Course & Med Decision Making: Course & Med Decision Making Pertinent Labs and Imaging studies reviewed. (See chart for details) [] 31-year-old female presents with right-sided rapp pain after a fall last Tuesday when she slipped on water. Patient has full range of motion and able to ambulate. Pedal pulses intact. Patient given 5/325 hydrocodone for pain. Tib-fib x-ray pedal pulses intact. Negative for fracture. Rice instructions given. Ibuprofen and Tylenol at home for pain. Follow-up with PCP for further management. Discussed results with patient .patient is okay with discharge plan. (GEO POTTER APRN) Course & Med Decision Making I was the Attending physician on the above date of service of this patient. This patient was evaluated, examined, treated, and dispositioned from the emergency department by the mid-level practitioner. Although I was working at the time , no assistance was requested. Electronically signed, Herminio Hallman DO (HERMINIO HALLMAN DO) Teo Disclaimer: Teo Disclaimer: This electronic medical record was generated, in whole or in part, using a voice recognition dictation system. ([employer] MANAGER) Departure Departure: Impression: Primary Impression: Lower extremity injury Qualified Codes: S89.91XA - Unspecified injury of right lower leg, initial encounter Disposition: HOME / SELF CARE / HOMELESS Condition: STABLE Referrals: PRAMOD MÁRQUEZ (PCP) Patient Instructions: Fall Prevention and Home Safety, [id number] Additional Instructions: You were seen in the emergency room for lower leg pain after a fall. X-ray was negative. Rest, use ice, elevate to help with swelling and pain. Ibuprofen and Tylenol at home for discomfort. Please call PCP for follow-up. Return emergency room with worsening symptoms or concerns. EMERGENCY DEPARTMENT GENERAL DISCHARGE INSTRUCTIONS Thank you for coming to [facility] (ED) today and trusting us with you care. We trust that you had a positivie experience in our Emergency Department. If you wish to speak to the department management, you may call the director at [phone]. YOUR FOLLOW UP INSTRUCTIONS ARE FOLLOWS: 1. Do you have a private Doctor? If you do not have a private doctor, please ask for a resource list of physicians or clinics that may be able to assist you with follow up care. 2. The Emergency Physician has interpreted your x-rays. The X-Ray specialist will also review them. If there is a change in the findings, you will be notified in 48 hours when at all possible. 3. A lab test or culture has been done, your results will be reviewed and you will be notified if you need a change in treatment. ADDITIONAL INSTRUCTIONS AND INFORMATION: 1. Your care today has been supervised by a physician who is specially trained in emergency care. Many problems require more than one evaluation for a complete diagnosis and treatment. We recommend that you schedule your follow up appointment as recommended to ensure complete treatment of you illness or injury. If you are unable to obtain follow up care and continue to have a problem, or if your condition worsens, we recommend that you return to the ED. 2. We are not able to safely determine your condition over the phone nor are we able to give sound medical advice over the phone. For these safety reasons, if you call for medical advice we will ask you to come to the ED for further evaluation. 3. If you have any questions regarding these discharge instructions please call the ED at [phone]. SAFETY INFORMATION: In the interest of safety, wellness, and injury prevention; we encourage you to wear your sealbelt, if you smoke; quite smoking, and we encourage family to use a protective helmet for bicycling and other sporting events that present an increased risk for head injury. IF YOUR SYMPTOMS WORSEN OR NEW SYMPTOMS DEVELOP, OR YOU HAVE CONCERNS ABOUT YOUR CONDITION; OR IF YOUR CONDITION WORSENS WHILE YOU ARE WAITING FOR YOUR FOLLOW UP APPOINTMENT; EITHER CONTACT YOUR PRIMARY CARE DOCTOR, THE PHYSICIAN WHOSE NAME AND NUMBER YOU WERE Connor MENJIVAR, OR RETURN TO THE ED IMMEDIATELY. GEO POTTER APRN Apr 13, 2021 15:30 HERMINIO HALLMAN DO Apr 14, 2021 13:13
[2021-04-13] MEDS ORDERED: HYDROcodone/APAP 5/325MG 1 TAB TABLET PO ONE (15:45)
== END 2021-04-13 16:17 | disposition home or self-care (01) ==
LOC: ER 14:30
DX: S90.01XA Contusion of right ankle, initial encounter (principal); F17.210 Nicotine dependence, cigarettes, uncomplicated; W01.0XXA Fall on same level from slipping, tripping and stumbling without subsequent striking against object, initial encounter; Y93.89 Activity, other specified; Y92.091 Bathroom in other non-institutional residence as the place of occurrence of the external cause; Y99.8 Other external cause status
CPT/HCPCS: 73590; 99283

== ENCOUNTER 2021-08-23 17:43 | Emergency (ER) | payer OTHER ==
[~2021-08-23] VITALS: Ht 154.9 cm; Wt 90.0 kg
--- NOTE | 2021-08-23 19:42 | PHYS DOC ---
Past History Past Medical History: No Pertinent History (DONYA DAVENPORT Oswald BOTTOM LOADER) Past Surgical History: No Surgical History (DONYA DAVENPORT BOTTOM LOADER) Smoking: Cigarettes, Greater than 1 pack/day Alcohol Use: None Drug Use: None (DONYA DAVENPORT BOTTOM LOADER) Adult General Chief Complaint Chief Complaint: HEADACHE HPI HPI Patient is a 31-year-old female patient presenting to the ED today complaining of cough, headache, loss of taste and smell, symptoms began yesterday. Patient denies any fever. She states she received [place] COVID-vaccine last week on . (DONYA DAVENPORT BOTTOM LOADER) Review of Systems Review of Systems Constitutional: Denies fever or chills [] Eyes: Denies change in visual acuity, redness, or eye pain [] HENT: Reports loss of taste and smell. Denies nasal congestion or sore throat [] Respiratory: Reports cough, denies shortness of breath Cardiovascular: No additional information not addressed in HPI [] GI: Denies abdominal pain, nausea, vomiting, bloody stools or diarrhea [] : Denies dysuria or hematuria [] Musculoskeletal: Denies back pain or joint pain [] Integument: Denies rash or skin lesions [] Neurologic: Reports headache, denies focal weakness or sensory changes [] All other systems were reviewed and found to be within normal limits, except as documented in this note. (DONYA DAVENPORT ) Allergies Allergies Allergies Coded Allergies Type Severity Reaction Last Updated Verified No Known Drug Allergies 01/16/17 No (DONYA DAVENPORT BOTTOM LOADER) Physical Exam Physical Exam Constitutional: Well developed, well nourished, no acute distress, non-toxic appearance. [] HENT: Normocephalic, atraumatic, bilateral external ears normal, oropharynx moist, no oral exudates, nose normal. [] Eyes: PERRLA, EOMI, conjunctiva normal, no discharge. [] Neck: Normal range of motion, no tenderness, supple, no stridor. [] Cardiovascular:Heart rate regular rhythm, no murmur [] Lungs & Thorax: Bilateral breath sounds clear to auscultation [] Abdomen: Bowel sounds normal, soft, no tenderness, no masses, no pulsatile masses. [] Skin: Warm, dry, no erythema, no rash. [] Back: No tenderness, no CVA tenderness. [] Extremities: No tenderness, no cyanosis, no clubbing, ROM intact, no edema. [] Neurologic: Alert and oriented X 3, normal motor function, normal sensory function, no focal deficits noted. [] Psychologic: Affect normal, judgement normal, mood normal. [] (DONYA DAVENPORT APRN) Current Patient Data Vital Signs Vital Signs Date Time Temp Pulse Resp B/P (MAP) Pulse Ox O2 Delivery O2 Flow Rate FiO2 08/23/21 18:15 97.9 78 18 130/75 (93) 99 Room Air (DONYA DAVENPORT APRN) EKG EKG [] (DONYA DAVENPORT APRN) Radiology/Procedures Radiology/Procedures [] (DONYA DAVENPORT APRN) Heart Score C/O Chest Pain: N/A Risk Factors: Risk Factors: DM, Current or recent (<one month) smoker, HTN, HLP, family history of CAD, obesity. Risk Scores: Risk Factors: DM, Current or recent (<one month) smoker, HTN, HLP, family history of CAD, obesity. (DONYA DAVENPORT APRN) Course & Med Decision Making Course & Med Decision Making Pertinent Labs and Imaging studies reviewed. (See chart for details) This is a 31-year-old female patient presented to the ED today complaining of cough, headache, loss of taste and smell, symptoms began yesterday. Patient was tested for COVID-19, results will be called to her when available. (DONYA DAVENPORT APRN) Course & Med Decision Making Did not see or evaluate patient.. Did not discuss patient with PATCHER BOWLING BALL. Agree with PATCHER BOWLING BALL's work-up and disposition per note (VALERIO PAZ MD) Dragon Disclaimer Dragon Disclaimer This electronic medical record was generated, in whole or in part, using a voice recognition dictation system. (DONYA DAVENPORT APRN) Departure Departure: Impression: Primary Impression: Cough Additional Impressions: Person under investigation for COVID-19 Anosmia Disposition: HOME / SELF CARE / HOMELESS Condition: STABLE Referrals: PRAMOD MÁRQUEZ (PCP) follow up next week Patient Instructions: Cough, Adult Additional Instructions: You were tested for COVID-19, quarantine yourself until results come back. We will call you when they are available. Take Tylenol or Motrin for pain or nodules Problem Qualifiers DONYA DAVENPORT APRN Aug 23, 2021 19:42 VALERIO PAZ MD Aug 23, 2021 21:04
[2021-08-23 19:48] VITALS: BP 128/72
== END 2021-08-23 19:54 | disposition home or self-care (01) ==
LOC: ER 17:43
DX: R05.9 Cough, unspecified (principal); R51.9 Headache, unspecified; R43.0 Anosmia; F17.210 Nicotine dependence, cigarettes, uncomplicated; Z20.822 Contact with and (suspected) exposure to COVID-19
CPT/HCPCS: 99283; C9803; U0003

== ENCOUNTER 2021-09-04 19:03 | Emergency (ER) | payer OTHER ==
[~2021-09-04] VITALS: Ht 154.9 cm; Wt 87.9 kg
[2021-09-04] MEDS ORDERED: diphenhydrAMINE 50 MG/ML VIAL IM ONE (19:30)
[2021-09-04] MEDS ORDERED: KETOROLAC 60 MG/2 ML VIAL. IM ONE (19:30)
[2021-09-04 20:11] LABS: INFLUENZA A PATIENT NEGATIVE (NEGATIVE); INFLUENZA B PATIENT NEGATIVE (NEGATIVE)
--- NOTE | 2021-09-04 20:15 | RAD ---
EXAMINATION: Chest radiograph. VIEWS: 2 COMPARISON: 02/26/2021 INDICATION:31 years, Female, chest pain. FINDINGS: Normal cardiomediastinal silhouette. No focal consolidation. No pleural effusion or pneumothorax. No acute osseous process. IMPRESSION: No acute cardiopulmonary process. Electronically signed by: Arin Rosado MD (09/04/2021 8:13 PM) [facility]
[2021-09-04] MEDS ORDERED: AMOX1TAB11 PO (21:07)
--- NOTE | 2021-09-04 21:08 | PHYS DOC ---
Past History Past Medical History: No Pertinent History (GEO POTTER APRN) Past Surgical History: No Surgical History (GEO POTTER APRN) Smoking: Cigarettes, Greater than 1 pack/day Alcohol Use: Occasionally Drug Use: None (GEO POTTER APRN) General Adult EDM: Chief Complaint: CHEST PAIN HPI: HPI: Patient is a 31-year-old female who presents with congestion, cough, body aches. Patient reports that symptoms started 2 weeks ago and have been returning off and on for the last week. Denies fevers. Denies chest pain or shortness of breath. Patient states that she has been tested three times for COVID which has been negative. Patient's been taking DayQuil and NyQuil at home with little relief for migraine. Patient denies health history. (GEO POTTER APRN) Review of Systems: Review of Systems: ROS At least 10 ROS systems have been reviewed and are negative except as documented in the HPI. General: Negative except as outlined in HPI above. Skin: Negative except as outlined in HPI above. HEENT: Negative except as outlined in HPI above. Neck: Negative except as outlined in HPI above. Respiratory: Negative except as outlined in HPI above.. Cardiovascular: Negative except as outlined in HPI above. Abdomen: Negative except as outlined in HPI above. : Negative except as outlined in HPI above. Back/MSK: Negative except as outlined in HPI above. Neuro: Negative except as outlined in HPI above. Psych: Negative except as outlined in HPI above. (GEO POTTER APRN) Current Medications: Current Meds: Current Medications Medications (Trade) Dose Ordered Sig/Jeremy Start Time Stop Time Status Last Admin Dose Admin Diphenhydramine HCl (Benadryl) 50 mg 1X ONCE 09/04/21 19:30 09/04/21 19:42 DC 09/04/21 19:36 50 MG Ketorolac Tromethamine (Toradol Im) 60 mg 1X ONCE 09/04/21 19:30 09/04/21 19:42 DC 09/04/21 19:36 60 MG (GEO POTTER APRN) Allergies: Allergies: Allergies Coded Allergies Type Severity Reaction Last Updated Verified No Known Drug Allergies 01/16/17 No (GEO POTTER APRN) Physical Exam: PE: Constitutional: Well developed, well nourished, no acute distress, non-toxic appearance. [] HENT:oropharynx moist, no oral exudates, nasal congestion Eyes: PERRLA, EOMI, conjunctiva normal, no discharge. [] Neck: Normal range of motion, no tenderness, supple, no stridor. [] Cardiovascular:Heart rate regular rhythm, no murmur [] Lungs & Thorax: Bilateral breath sounds clear to auscultation [] Abdomen: Bowel sounds normal, soft, no tenderness, no masses, no pulsatile masses. [] Skin: Warm, dry, no erythema, no rash. [] Back: No tenderness, no CVA tenderness. [] Extremities: No tenderness, no cyanosis, no clubbing, ROM intact, no edema. [] Neurologic: Alert and oriented X 3, normal motor function, normal sensory function, no focal deficits noted. [] Psychologic: Affect normal, judgement normal, mood normal. [] (GEO POTTER APRN) Current Patient Data: Labs: Laboratory Tests Test 09/04/21 19:36 Influenza Type A (Rapid) Negative (NEGATIVE) Influenza Type B (Rapid) Negative (NEGATIVE) SARS-CoV-2 Antigen (Rapid) Negative (NEGATIVE) Vital Signs: Vital Signs Date Time Temp Pulse Resp B/P (MAP) Pulse Ox O2 Delivery O2 Flow Rate FiO2 09/04/21 19:15 98.3 80 20 134/85 (101) 98 Room Air (GEO POTTER APRN) EKG: EKG: [] (GEO POTTER APRN) Radiology/Procedures: Radiology/Procedures: [] (GEO POTTER APRN) Heart Score: C/O Chest Pain: No Risk Factors: Risk Factors: DM, Current or recent (<one month) smoker, HTN, HLP, family history of CAD, obesity. Risk Scores: Score 0 - 3: 2.5% MACE over next 6 weeks - Discharge Home Score 4 - 6: 20.3% MACE over next 6 weeks - Admit for Clinical Observation Score 7 - 10: 72.7% MACE over next 6 weeks - Early Invasive Strategies (GEO POTTER APRN) Course & Med Decision Making: Course & Med Decision Making Pertinent Labs and Imaging studies reviewed. (See chart for details) [] 31-year-old female presents with congestion, cough and body aches. Work-up in ER consisted of chest x-ray, COVID and rapid influenza. Patient headache treated with Toradol, Benadryl. Chest x-ray was unremarkable. Pain improved after medication was administered. Influenza and COVID were both negative. Discussed results with patient. Patient is concerned because symptoms have lasted off and on for the last 2 weeks. Advised patient to start taking Mucinex D during the day. 600 mg, ibuprofen three times a day, and Benadryl at night. Make sure to drink plenty of fluids and get rest. Patient is requesting a work note for Tuesday and Tuesday. Advised patient if she is not feeling better by Tuesday she needs to call make an appointment with her PCP. Or return to the ER if symptoms worsen. Advised patient I would send her home with a prescription for sinus infection due to length of time of symptoms. Patient is appreciative and okay with discharge plan. Patient is hemodynamically stable upon disposition. (GEO POTTER APRN) Dragon Disclaimer: Dragon Disclaimer: This electronic medical record was generated, in whole or in part, using a voice recognition dictation system. (GEO POTTER APRN) Departure Departure: Impression: Primary Impression: Cough Additional Impression: Headache Qualified Codes: R51.9 - Headache, unspecified Disposition: HOME / SELF CARE / HOMELESS Condition: STABLE Referrals: PRAMOD MÁRQUEZ (PCP) Patient Instructions: General Headache Without Cause Additional Instructions: You were seen in the emergency room for cough, congestion, headache. Your COVID and influenza test were both negative. Chest x-ray was unremarkable. You can take Mucinex D during the day to help with symptoms, you can take ibuprofen three times a day (every 8 hours) you can take 600 mg at one time for body aches and headache. Drink plenty of fluids. Sending home with a prescription for an antibiotic due to the length of time of your symptoms. Please call your PCP on Tuesday if your symptoms do not improve. Return to the emergency room if you have worsening symptoms or concerns such as shortness of breath, chest pain, uncontrollable diarrhea or vomiting. EMERGENCY DEPARTMENT GENERAL DISCHARGE INSTRUCTIONS Thank you for coming to [facility] (ED) today and trusting us with you care. We trust that you had a positivie experience in our Emergency Department. If you wish to speak to the department management, you may call the director at [phone]. YOUR FOLLOW UP INSTRUCTIONS ARE FOLLOWS: 1. Do you have a private Doctor? If you do not have a private doctor, please ask for a resource list of physicians or clinics that may be able to assist you with follow up care. 2. The Emergency Physician has interpreted your x-rays. The X-Ray specialist will also review them. If there is a change in the findings, you will be notified in 48 hours when at all possible. 3. A lab test or culture has been done, your results will be reviewed and you will be notified if you need a change in treatment. ADDITIONAL INSTRUCTIONS AND INFORMATION: 1. Your care today has been supervised by a physician who is specially trained in emergency care. Many problems require more than one evaluation for a complete diagnosis and treatment. We recommend that you schedule your follow up appointment as recommended to ensure complete treatment of you illness or injury. If you are unable to obtain follow up care and continue to have a problem, or if your condition worsens, we recommend that you return to the ED. 2. We are not able to safely determine your condition over the phone nor are we able to give sound medical advice over the phone. For these safety reasons, if you call for medical advice we will ask you to come to the ED for further evaluation. 3. If you have any questions regarding these discharge instructions please call the ED at [phone]. SAFETY INFORMATION: In the interest of safety, wellness, and injury prevention; we encourage you to wear your sealbelt, if you smoke; quite smoking, and we encourage family to use a prot ective helmet for bicycling and other sporting events that present an increased risk for head injury. IF YOUR SYMPTOMS WORSEN OR NEW SYMPTOMS DEVELOP, OR YOU HAVE CONCERNS ABOUT YOUR CONDITION; OR IF YOUR CONDITION WORSENS WHILE YOU ARE WAITING FOR YOUR FOLLOW UP APPOINTMENT; EITHER CONTACT YOUR PRIMARY CARE DOCTOR, THE PHYSICIAN WHOSE NAME AND NUMBER YOU WERE GIVEN, OR RETURN TO THE ED IMMEDIATELY. Scripts Prednisone (PREDNISONE) 20 Mg Tablet 3 TAB PO DAILY for allergies for 5 Days, #15 TAB Prov: GEO POTTER APRN 09/04/21 Amoxicillin/Potassium Clav (AMOX TR-K CLV 875-125 MG TAB) 1 Each Tablet 1 TAB PO BID for sinus for 7 Days, #14 TAB Prov: GEO POTTER APRN 09/04/21 Attending Signature Attending Signature I have reviewed the PA/SUPERVISOR PHOSPHATIC FERTILIZER's note and plan of care. I was available for consultation as needed during the patient's visit in the emergency department. I agree with the clinical impression, plan, and disposition. (SPEEDY NINA DO) GEO POTTER BINDERY CUTTER OPERATOR Sep 04, 2021 21:08 SPEEDY NINA DO Sep 05, 2021 03:01
[2021-09-04] MEDS ORDERED: AMOXICILLIN/K CLAV 875/125MG TABLET. PO ONE (21:15)
[2021-09-04] MEDS ORDERED: predniSONE 20 MG TABLET PO ONE (21:15)
[2021-09-04] MEDS ORDERED: PRED20TA PO (21:52)
[2021-09-05 21:55] VITALS: BP 128/82
== END 2021-09-04 22:02 | disposition home or self-care (01) ==
LOC: ER 19:03
DX: R05.9 Cough, unspecified (principal); R51.9 Headache, unspecified; F17.210 Nicotine dependence, cigarettes, uncomplicated; Z20.822 Contact with and (suspected) exposure to COVID-19
CPT/HCPCS: 71046; 87428; 96372; 99284; C9803; J1200; J1885; J7512; U0003